=== PATIENT | male | born 1970 | race Caucasian/White ===

== ENCOUNTER → 2018-03-12 | Outpatient (CLI) | payer BC ==
[~2018-03-12] VITALS: Ht 177.8 cm; Wt 102.0 kg
[~2018-03-12] MED LIST: AMPH10TA2 PO; AMPH30CA3 PO; ASPI81TA57 PO; GEMF600T3 PO; MULT-506 PO; OMEG10007 PO; PRLSR20 PO; SILD100T PO
[2018-03-12 15:06] VITALS: BP 127/76; PULSE 99; Ht 177.8 cm; Wt 102.0 kg
== END | disposition home or self-care (01) ==
LOC: C.NEUR 13:34
PROVIDERS: ATTEND Physician Assistant
DX: G47.30 Sleep apnea, unspecified (principal)